=== PATIENT | male | born 1965 | race Two or more races ===

== ENCOUNTER 2016-10-12 10:11 | Day surgery (SDC) | payer OTHER ==
[2016-10-12] VITALS (7 sets, daily range): BP systolic 98–131; BP diastolic 55–72; PULSE 56–66; RESP 14–18; Ht 182.9 cm; Wt 141.0 kg
[~2016-10-12] VITALS: Ht 182.9 cm; Wt 141.0 kg
[~2016-10-12 10:11] MED LIST: CEFAZOLIN 1 GM INJ ONE
--- NOTE | 2016-10-12 11:26 | HPN ---
Date/Time of Note Date/Time of Note DATE: 10/12/16 TIME: 11:25 Interval H&P Admission Note Pt. seen H&P reviewed: No system changes SINAN SANDOVAL MD Oct 12, 2016 11:26
[2016-10-12] MEDS ORDERED: POTA20TA96 PO (11:52)
[2016-10-12] MEDS ORDERED: ATOR10TA65 PO (11:52)
[2016-10-12] MEDS ORDERED: WARF4TAB52 PO (11:52)
[2016-10-12] MEDS ORDERED: AMIO200T2 PO (11:54)
[2016-10-12] MEDS ORDERED: ASPI325T4 PO (11:54)
[2016-10-12] MEDS ORDERED: METF500T4 PO (11:56)
[2016-10-12] MEDS ORDERED: CARV12.579 PO (11:56)
[2016-10-12] MEDS ORDERED: BENA20TA48 PO (11:56)
[2016-10-12] MEDS ORDERED: FURO40TA4 PO (11:56)
[2016-10-12] MEDS ORDERED: OMEP-28 PO (11:56)
[2016-10-12] MEDS ORDERED: SERT-165 PO (11:57)
[2016-10-12] MEDS ORDERED: MIDAZOLAM 1 MG/ML 2 ML INJ ONE ×2 (12:58→12:59)
[2016-10-12] MEDS ORDERED: PROPOFOL 20 ML ONE ×2 (12:58→12:59)
[2016-10-12] MEDS ORDERED: HYDROmorphONE (0.2 MG/ML) 10ML SYG IV PRN ×2 (13:00)
[2016-10-12] MEDS ORDERED: hydrALAzine 20 MG INJ IV PRN (13:00)
[2016-10-12] MEDS ORDERED: ONDANSETRON 4 MG INJ IV PRN (13:00)
[2016-10-12] MEDS ORDERED: DIPHENHYDRAMINE 50 MG INJ IV PRN (13:00)
[2016-10-12] MEDS ORDERED: BUPIVACAINE 0.5% (SDV) 30 ML INJ ONE (13:00)
[2016-10-12] MEDS ORDERED: OXYCODONE/ACETAMINOPHEN (5/325) TAB PO PRN (14:00)
[2016-10-12 14:23] LABS: INR 0.96; PROTIME 12.8 Sec (12.2-14.2)
--- NOTE | 2016-10-12 16:14 | OPR ---
DATE OF OPERATION: 10/12/2016 PREOPERATIVE DIAGNOSES: Balanitis and phimosis. POSTOPERATIVE DIAGNOSES: Balanitis and phimosis. OPERATION PERFORMED: Circumcision. TECHNIQUE: The patient was brought to the operating room. He was positioned on the operating room table in the supine position. A time out was done. The patient was identified by his name, d ate, and the procedure. Then the patient was given sedation by the anesthesiologist and 2 grams of Ancef IV at the start of the procedure. The genital area was prepped and draped in the usual steril e manner. Then 0.5% Marcaine injection was given around the base of the penis for local anesthesia. Then the foreskin was marked at the level of the camargo and then incised. Then a dorsal slit was done to be able to retract the foreskin back, and then the penis was painted again with Betadine gabriella ution. Then another incision was made about 1 cm proximal to the camargo. Then the skin between the 2 incisions was removed. All the bleeders were electrocoagulated. Good hemostasis was obtained. Then, the subcutaneous tissue was approximated with 3-0 Vicryl interrupted sutures at the 9, 12, 3, and 6 o'clock positions. Then the skin approximated with 3-0 Vicryl interrupted sutures. At the en d of the procedure, the incision was covered with Vaseline gauze and wrapped with a Juwan, and the p atient was transferred to recovery room in stable and satisfactory condition. Dictated By: SINAN KESSLER/ALLISON Conf#: [id number] DID#: [id number]
== END 2016-10-12 15:47 | disposition home or self-care (01) ==
LOC: SDS 10:11
PROVIDERS: ATTEND Urology
DX: N47.1 Phimosis (principal); N48.1 Balanitis; I10 Essential (primary) hypertension; E11.9 Type 2 diabetes mellitus without complications; E66.01 Morbid (severe) obesity due to excess calories; Z68.41 Body mass index [BMI] 40.0-44.9, adult
CPT/HCPCS: 54161; 82962; 85610; 88304; J0690; J2250; Z7512; Z7610; J3010